=== PATIENT | male | born 1985 | race African-American/Black ===

== ENCOUNTER 2017-02-23 02:07 | Emergency (ER) | payer MEDICAID ==
[~2017-02-23] VITALS: Ht 172.7 cm; Wt 60.5 kg
[2017-02-23 02:12] VITALS: Ht 172.7 cm; Wt 60.5 kg
--- NOTE | 2017-02-23 02:49 | ERD ---
ER Documentation Chief Complaint Chief Complaint abscess right groin HPI right sided penal abscess, hx of folliculitis with shaving. pt reports that it had a pustule that he pop, pt denies risky sexual behavior, monogamous ROS All systems reviewed and are negative except as per history of present illness. Allergies Allergies: Coded Allergies: No Known Allergy (Unverified , 05/13/12) PMhx/Soc Medical and Surgical Hx: pt denies Medical Hx, pt denies Surgical Hx History of Surgery: No Anesthesia Reaction: No Hx Neurological Disorder: No Hx Respiratory Disorders: No Hx Cardiac Disorders: No Hx Psychiatric Problems: No Hx Miscellaneous Medical Probl: Yes Hx Alcohol Use: No Hx Substance Use: No Hx Tobacco Use: No Smoking Status: Never smoker Physical Exam Vitals Vital Signs Date Time Temp Pulse Resp B/P Pulse Ox O2 Delivery O2 Flow Rate FiO2 02/23/17 02:12 97.8 62 20 117/68 100 Vitals stable, triage notes reviewed Physical Exam Const: Nourished hydrated well-appearing male patient no acute distress Head: Eyes: ENT: Neck: Resp: Cardio: Abd: Skin: Right mid penile shaft presents with a flat scabbed lesion approximately 1 cm, Genitalia: Male anatomy, distended testicles, circumcised penis with a right mid penile shaft lesion scab without any evidence of erythema, secondary lesions ulcers or penile discharge. Back: Ext: Neur: Awake and alert Psych: Normal Mood and Affect Procedures/MDM This pleasant 31-year-old male patient presents to emergency with report of a right-sided penile abscess history of folliculitis, patient reports that he does get abscesses after shaving, states he saw a pustule and popped it and then became fearful that it was something more serious. Patient denies any risky sexual behavior, reports that he is in a monogamous relationship, emergency room course includes history and physical exam, positive for a scabs lesion in the right side of penis with no erythema no other lesions noted, plan to discharge patient home with term 1 tab p.o. twice daily 7 days, Keflex 1 tab p.o. 4 times daily 10 days, Bactroban to lesion, follow-up with primary care physician if symptoms fail to improve as anticipated. Patient is stable with no new complaints during ER course, clinically there is no current evidence to suggest testicular torsion sepsis, urinary tract infection, STI or any other emergent condition appearing to require further evaluation or hospitalization. I feel the patient is stable for discharge at this time. I have discussed results, examination findings, the treatment plan with the patient and family present prior to discharge. Indications for emergent reevaluation, side effects of medication were also discussed. All questions were answered. Patient verbalizes understanding and agrees with plan of care. Departure Condition: Good Patient Instructions: Abscess, Antiobiotic Treatment Only Additional Instructions: Thank you for for coming to [facility] for your care today. Please ask your nurse or provider if you have questions about your care today and do not leave until all your questions have been answered. Please use any medications given as directed and follow-up with your doctor (or the doctor you were referred to) in the next 2-3 days. If you do not have a primary care doctor you may follow up at the [facility] (listed below). You may also use motrin and tylenol as needed for fever and/or pain unless instructed otherwise by your provider or nurse. Indications for more urgent follow-up have been discussed, but you may return to the Emergency Department at ANY time for any worrisome or worsening symptoms. If you have abdominal pain, please know that no test or exam you received is perfect and you should follow up within 8 hours for continued pain. If you had any imaging studies today, such as an X-Ray or CT Scan, these studies will be reviewed later by a radiologist. You will be called if there are important findings that were not identified today, so make sure the contact information you provided at registration is correct. If you received any narcotic pain control medicine today, such as Vicodin, Morphine or Dilaudid, your coordination and judgment may be affected for a number of hours. Please do not drive or operate heavy machinery, and you may want someone to assist you at home. If you were given a prescription for narcotic medication, be aware that it is very addictive- use sparingly and only if necessary. RYLAND BOSS Feb 23, 2017 02:49
[2017-02-23] MEDS ORDERED: SULF1TAB31 PO (03:37)
[2017-02-23] MEDS ORDERED: MUPI22OI2 TOP (03:38)
[2017-02-23] MEDS ORDERED: CEPH-443 PO (03:38)
[2017-02-23] MEDS ORDERED: TRIMETHOPRIM/SULFAMETHOX (DS) TAB PO ONE (04:00)
[2017-02-23] MEDS ORDERED: CEPHALEXIN 500 MG CAP PO ONE (04:00)
== END 2017-02-23 03:50 | disposition home or self-care (01) ==
LOC: FTE 02:07
DX: L02.214 Cutaneous abscess of groin (principal)
CPT/HCPCS: Z7502; Z7610; 99284